=== PATIENT | male | born 1970 | race Caucasian/White ===

== ENCOUNTER 2020-12-14 06:25 | Day surgery (SDC) | payer BC ==
[~2020-12-14 06:25] MED LIST: Dextrose 5%-0.45% NaCl 1,000 ML IV SCH; Midazolam 1 MG/ML 2 ML SDV ONE; Sodium Chloride 0.9% 10 ML Syringe FLUSH PRN; fentaNYL 100 MCG/2 ML SDV ONE
[2020-12-14] MEDS ORDERED: Midazolam 1 MG/ML 2 ML SDV IV ONE ×7 (06:26→07:41)
[2020-12-14] MEDS ORDERED: fentaNYL 100 MCG/2 ML SDV IV ONE ×6 (06:26→07:45)
--- NOTE | 2020-12-14 08:25 | OR ---
DATE: 12/14/2020 PROCEDURE: Total colonoscopy. INSTRUMENT USED: [id number] Olympus video colonoscope. PREMEDICATIONS: Fentanyl 175 mcg intravenous, Versed 4 mg intravenous. Nasal O2 cannula. The procedure was done under pulse oximetry, BP recording, and outcomes specialist. INDICATIONS: Screening colonoscopic examination is done for detection of any polypoid lesions and removal, endoscopic hemostasis therapy if needed. DESCRIPTION OF PROCEDURE: Initial rectal exam showed marked anal sphincter spasm. Limited rigid anoscopy unremarkable. The colonoscope was passed with ease to the ileocecal area. Photographs were taken of the normal-appearing cecum identified by appendiceal orifice and ileocecal opening. No bleeding was noted from any of the visualized areas at the commencement of the examination. The bowel preparation was found to be adequate. [place] scale 3 in right and transverse colon, 2 in left colon, total score 8. No stricture. No vascular ectasia. No large isolated ulcerations seen. No evidence of diffuse inflammatory bowel disease in the form of friability, contact bleeding, or ulcerations. No polyp or tumor mass identified. The sigmoid colon was found to be a bit straight. Probing the proximal sides of folds and flexures using adequate distention and clearing up the stool material, withdrawal of the scope was made. Cecum to rectum time over 6 minutes. No bleeding was noted from any of the visualized areas at the completion of the examination. IMPRESSION: Normal study. The patient tolerated the procedure well. [facility] /[id number]
== END 2020-12-14 10:00 | disposition home or self-care (01) ==
LOC: DL.ENDO 06:25
PROVIDERS: ATTEND Internal Medicine Gastroenterology
DX: Z12.11 Encounter for screening for malignant neoplasm of colon (principal); E66.09 Other obesity due to excess calories; I10 Essential (primary) hypertension; G47.33 Obstructive sleep apnea (adult) (pediatric); L91.0 Hypertrophic scar; Z86.16 Personal history of COVID-19; Z68.32 Body mass index [BMI] 32.0-32.9, adult
CPT/HCPCS: 45378; J2250; J3010; J7042

== ENCOUNTER 2024-05-15 09:13 | Emergency (ER) | payer BC | END 2024-05-15 09:56 | disposition home or self-care (01) | LOC: DL.ED 09:13 | DX: S20.461A Insect bite (nonvenomous) of right back wall of thorax, initial encounter (principal); I10 Essential (primary) hypertension; E66.9 Obesity, unspecified; Z68.34 Body mass index [BMI] 34.0-34.9, adult; W57.XXXA Bitten or stung by nonvenomous insect and other nonvenomous arthropods, initial encounter | CPT/HCPCS: 99282 ==